=== PATIENT | female | born 1995 | race Caucasian/White ===

== ENCOUNTER 2021-06-20 22:18 | Outpatient (CLI) ==
--- NOTE | 2021-06-20 23:40 | IPNPDOC ---
Text Note Date of Service The patient was seen on 06/20/21. NOTE Chief Complaint: Ms. Echevarria is a 26 year old G4 P 1 at 40+1 weeks gestation presenting to L&D triage for complaints of leaking fluid. HPI: Reports leaking fluid just prior to urination and just after urination at 2100 this evening. Report leaking fluid since and having to wear pad. Clear fluid, no odor. Denies any recent intercourse. Some dark brown spotting starting with contractions at 2000 this evening. Had membranes swept in clinic this past week. Reports contractions every 5 min. Denies vaginal bleeding. Reporting good movement. Denies any headaches, nausea, vomiting, RUQ pain. Denies any dysuria, vaginal discharge, vaginal itching/burning. Objective: VS: BP 139/80, P 91 General: Alert. Well-appearing, in no acute distress. Not breathing through contractions at all. PSYCH: Well groomed. Appropriate affect, normal mood. Conversed easily. Neuro: Oriented to time, place, and person. RESP: Unlabored breathing. CV: No cyanosis. ABD: Soft, non-tender. MSK: Legs without edema bilaterally. Normal mvmt all extremities. Steady gait. Antonietta from a seated position without assistance. Obstetrical: FHR: 135 with moderate variability, accelerations present. No decelerations noted. Contractions Q3-4min, mild to palpation. VTX by Yuko SVE: 50/-3, Mid/medium Pelvic exam: External Genitalia showed no abnormalities, without lesions; normal vulva with NO vulvar atrophy, hypertrophy, stricture, adhesions, ulcers, lesions, masses, or vulvitis. Vagina: Normal vaginal discharge was observed. Normal mucosa with good rugae. No ulcerations, masses, lesions or lacerations. No unusual odors. No cystocele or rectocele. No uterine prolapse. Cervix: Normal mucoid discharge, no lesions, no CMT. Non-friable, no masses. Cervical os visually closed. Negative pooling, negative valsalva. Uterus: Not tender. Appropriate size for gestational age. Online Producer present for exam: L&D RN Limited Trans-Abdominal Ultrasound Performed Today: Presentation: VTX Placenta location: Anterior Movement Present Heart Rate Present Amniotic fluid: MVP 5.13 cm. Labs: Fern negative, nitrazine negative. A/P 26yo at 40+1 wks gestation evaluated in L&D triage for complaints of leaking fluid. VSS and normal Benign physical exam Reactive NST, reassuring TAUS showing: VTX with normal fluid by MVP SVE: 1-250/-3, not in active labor. Negative nitrazine & fern, Not ruptured. Plan: Discussed early labor precautions. Educated on routine OB return precautions and warning signs. Follow up on [facility] as previously scheduled. BRANDEN TUTTLE CNM Jun 20, 2021 23:40
== END 2021-06-20 23:30 | disposition home or self-care (01) ==
LOC: M LDO 22:18
PROVIDERS: ATTEND Advanced Practice Midwife
DX: O26.893 Other specified pregnancy related conditions, third trimester (principal); N89.9 Noninflammatory disorder of vagina, unspecified; Z3A.40 40 weeks gestation of pregnancy
CPT/HCPCS: 59025; G0378; G0463

== ENCOUNTER 2021-06-25 09:12 | Inpatient (IN) | payer OTHER ==
[~2021-06-25] VITALS: Ht 157.5 cm; Wt 79.6 kg
[2021-06-25] VITALS (17 sets, daily range): BP systolic 112–177; BP diastolic 59–97
[2021-06-25] MEDS ORDERED: PRENTAB9 PO (09:31)
[2021-06-25] MEDS ORDERED: IRON1TAB2 PO (09:31)
[2021-06-25] MEDS ORDERED: LACTATED RINGER'S 1000 ML IV STA (10:06)
[2021-06-25] MEDS ORDERED: OXYTOCIN INJ 10 UNITS/ML VIAL (J2590) IV PRN (10:10)
[2021-06-25] MEDS ORDERED: TRANEXAMIC ACID INJection 1,000 MG in NS 100 ML IV PRN (10:10)
[2021-06-25] MEDS ORDERED: CARBOPROST TROMETHAMINE 250 MCG/ML AMP IM PRN (10:10)
[2021-06-25] MEDS ORDERED: OXYTOCIN DRIP 30 UNITS in IV 1 EA IV SCH (10:10)
[2021-06-25] MEDS ORDERED: LIDOCAINE 1% MDV 20ML VIAL INFIL PRN (10:10)
[2021-06-25] MEDS ORDERED: OXYTOCIN DRIP 30 UNITS in IV 1 EA IV PRN ×6 (10:10)
[2021-06-25] MEDS ORDERED: OXYTOCIN INJ 10 UNITS/ML VIAL (J2590) IM PRN (10:10)
[2021-06-25 10:41] LABS: HEMATOCRIT 38.3 % (36.0-47.0); MEAN CORPUSCULAR HEMOGLOBIN 27.9 pg (27.0-33.0); MEAN CORPUSCULAR HGB CONC 31.3 g/dl (32.0-36.5); MEAN CORPUSCULAR VOLUME 89.1 fl (80.0-96.0); PLATELET COUNT, AUTOMATED 258 10^3/uL (150-450); WHITE BLOOD COUNT 10.7 10^3/uL (4.0-10.0)
--- NOTE | 2021-06-25 10:41 | HPEPDOC ---
Obstetrical History & Physical General Date of Admission Jun 25, 2021 at 09:58 History of Present Illness The patient is a 26 yo @ 40W6D by LMP C/W 20 WK US who is admitted for IOL with elevated BP and contractions. She denies any vaginal bleeding, abnormal vaginal discharge, leakage of fluids, urinary symptoms,. She denies any new headaches, visual abnormalities, chest pain, worsening dyspnea, facial swelling, or upper extremity swelling. At this time, she continues to report regular movement. Chief Complaint: Contractions, term Care Care: Good Care Dating Final EDC by: LMP LMP: Sep 12, 2019 Estimated Date of Confinement: Jun 19, 2021 EGA at Admission: 40 (40+6) Antepartum Course Diagnos(e)s 1. LATE ENTRY TO CARE 2. ELEVATED BP on admission- pre e labs pending Past Medical History Past Obstetrical History : Past Obstetrical History: Multigravida Sex of : Male Complications: No SHANK SCOURER History: No pertinent history Past Medical History Surgical History: Denies/None, Gallbladder Family History Significant Family History: No pertinent family hx Social History Marital Status: Family situation: Spouse/partner home Psychosocial History: No pertinent psych hx * Smoker: non-smoker Alcohol: Denies Drugs: denies Abuse Violence Screening Have you been hit/kicked/slapp: No Have you been sexually assault: No Imunizations Tdap status: declined Influenza Status: declined Allergies Coded Allergies: No Known Allergies (Unverified , 06/25/21) Medications Scheduled Ferrous Sulfate (Iron) 325 Mg Tablet, 1 TAB PO BID No.137/Iron/Folic Acd ( Vitamin Tablet) 1 Each Tablet, 1 TAB PO DAILY Physical Examination Physical Examination GENERAL: Alert and oriented times three. BREAST: . ABDOMEN: Gravid and non-tender to touch. FETUS: Is vertex (VTX) by sterile vaginal examination (SVE), HEART RATE: Regular rate and rhythm. LUNGS:NORMAL WORK OF BREATHING EXTREMITIES: No edema. Vital Signs/I&O Vital Signs Date Time Temp Pulse Resp B/P (MAP) Pulse Ox O2 Delivery O2 Flow Rate FiO2 06/25/21 09:27 98.8 109 14 136/91 (106) Laboratory Data [facility] Laboratory Tests 2 06/25/21 10:19: Serology Scanned Report Hepatitis B Testing Urine Culture: No Growth Pertinent Laboratoy Data Blood Type: A+ RBC Antibody Screen: Negative HIV: Negative Hepatitis B: Negative Hepatitis C: Unknown Rapid Plasma Reagin: Nonreactive Rubella: Immune Varicella: Unknown Chlamydia/Gonorrhea: Negative Group B Streptococcus: Negative Glucose Tolerance Test: 116 Anatomy Ultrasound Placenta Location: Anterior Normal Anatomy: Yes Placenta Previa: No Steroid Therapy Steroid Therapy: No Vaginal Examination Dilation: 3 cm Effacement: 70% Station: -2 Cervical Consistency: Soft Cervical Position: Middle Presentation: Cephalic presentation Assessment Heart Rate (FHR): 140 Variability: Moderate Accelerations: Positive Decelerations: None Tocometer Contractions: Yes Frequency: every 3-7 min. Strength: palpated as moderate Multi-drug resistant Organism: No history of MDRO Assessment/Plan Assessment Assessment: The patient is a 26 yo @ 40W6D by LMP C/W 20 WK US who is admitted for IOL with elevated BP and contractions. Pelvis proven to 7lbs 14 oz. Pelvis Adequate for trial of labor. Category I FHRT. APC: 1. Late Entry to care 2. ELEVATED BP on admission- pre e labs pending SVE: /-2 GBS NEG Cephalic by EXAM EFW 3200 RH POS Placenta Anterior, no previa Plan Plan: - Admit to L&D. - Consent obtained - CBC with type and screen and pre e labs - EFM - Anesthesia to see- wants epidural MARY - Risks of augmentation with Pitocin discussed with patient. C-S as appropriate. Labor and Delivery Counseling We will deliver your baby through the vagina with possible assistance of forceps or vacuum device if needed for maternal or indications. Forceps and vacuum are devices that can assist with vaginal delivery when normal pushing efforts cannot achieve delivery on their own or when delivery is needed in an emergency for baby's well-being. Medications may be required to induce or augment (help) your labor in order to achieve a vaginal delivery. An episiotomy may be required to help your baby to delivery vaginally. You may also require repair of any lacerations or tears of your vagina or vulva that are caused by delivery. In some cases, emergencies can occur that require an emergency section delivery so quickly that there may not be enough time to stop and complete consent forms for section. Understand that if this occurs, your providers will discuss the need for a section with you before they proceed with surgery. section is the delivery of your baby through an incision in your abdomen. In some situations, section may be safer to mom and baby than continuing labor and is only performed when clinically indicated. Risks of vaginal delivery include but are not limited to: Bleeding, infection, injury to the vagina, pelvic structures, injury to baby, damage to the uterus, reactions to anesthesia, uterine rupture, risk of hysterectomy for life threatening bleeding, or . Medications used to induce or augment labor may increase your risk for infection, uterine tachysystole, uterine rupture, heart rate abnormalities, need for emergency delivery or possible hysterectomy, and hemorrhage. Additional risks for use of forceps and vacuum include: increased risk of perineal and vaginal lacerations, risk of urinary or bowel incontinence, increased risk of injury to baby with bru ising, scratches, hematomas on the head, or intracranial bleeding. CELIA WOLFE MD Jun 25, 2021 10:41
[2021-06-25 11:07] LABS: ALT/SGPT 17 U/L (12-78); BILIRUBIN,TOTAL 0.3 MG/DL (0.2-1.0); CREATININE FOR GFR 0.54 MG/DL (0.55-1.30); GLOMERULAR FILTRATION RATE > 60.0 (>60); LDH LACTATE DEHYDROGENASE 169 U/L (84-246)
[2021-06-25] MEDS: LR 1,000 ML IV SCH ×2 (11:07→14:42)
[2021-06-25] MEDS ORDERED: FENTANYL 2MCG/ML ROPIVACAINE 0.2% IN 0.9% NACL 100ML IVBAG As Ordered ONE (11:49)
[2021-06-25] MEDS ORDERED: LACTATED RINGER'S 1000 ML IV PRN (12:55)
[2021-06-25] MEDS ORDERED: REFRIGERATOR IV KEYS XX PRN (12:55)
[2021-06-25] MEDS ORDERED: EPIDURAL COMMENT XX SCH (12:55)
[2021-06-25] MEDS ORDERED: ONDANSETRON 4MG/2ML VIAL IV PRN (12:55)
[2021-06-25] MEDS ORDERED: NALOXONE INJ 0.4MG/1ML VIAL (J2310 PER 1MG) IV PRN (12:55)
[2021-06-25] MEDS ORDERED: ePHEDrine SULFATE 25 MG/5 ML(5MG/ML) SYRINGE IV PRN (12:55)
[2021-06-25] MEDS ORDERED: FENTANYL/ROPIVACAINE/NACL BAG 100 ML EPIDURAL SCH (12:55)
[2021-06-25] MEDS ORDERED: EPIDURAL/PCA KEYS XX PRN (12:55)
[2021-06-25] MEDS ORDERED: diphenhydrAMINE 50MG/ML VIAL (J1200) IV PRN (12:55)
[2021-06-25 14:17] LABS: TOTAL PROTEIN,RANDOM URINE 43.7 MG/DL (0.0-12.0)
[2021-06-25] MEDS ORDERED: ANUSOL HC CREAM 30GM TOP PRN (15:50)
[2021-06-25] MEDS ORDERED: DIBUCAINE 1% OINTMENT 30GM TOP PRN (15:50)
[2021-06-25] MEDS ORDERED: DOCUSATE SODIUM 100MG CAPSULE PO PRN (15:50)
[2021-06-25] MEDS ORDERED: ACETAMINOPHEN TAB 650MG DOSE (2X325MG) PO PRN (15:50)
[2021-06-25] MEDS ORDERED: MOM 30ML SUSPENSION UDC PO PRN (15:50)
[2021-06-25] MEDS ORDERED: IBUPROFEN 800 MG TAB PO PRN (15:50)
[2021-06-25 15:58] LABS: CORD GAS ABE A -6.7; CORD GAS HCO3 A 22.4 MEQ/L; CORD GAS O2 SAT A 38.2 %; CORD GAS PCO2 A 59.4 mmHg; CORD GAS PH A 7.194 UNITS; CORD GAS PO2 A 20.7 mmHg; CORD GAS SBC A 17.7 MEQ/L; CORD GAS TCO2 A 24.2 MEQ/L
[2021-06-25 15:59] LABS: CORD GAS ABE V -5.2; CORD GAS HCO3 V 21.3 MEQ/L; CORD GAS O2 SAT V 63.2 %; CORD GAS PCO2 V 44.7 mmHg; CORD GAS PH V 7.296 UNITS; CORD GAS PO2 V 27.5 mmHg; CORD GAS SBC V 19.4 MEQ/L; CORD GAS TCO2 V 22.7 MEQ/L
--- NOTE | 2021-06-25 16:07 | DNPDOC ---
[facility] Delivery Note Delivery Note DATE OF DELIVERY: 06/25/2021 PREDELIVERY DIAGNOSIS: 40-6/7 weeks' gestation and laborr, Elevated BP without he dx og gestational HTN POST DELIVERY DIAGNOSIS: Delivered, Gestational HTN PROCEDURE: Vacuum assisted vaginal delivery CLEAT BLANKER: Letty Still ANESTHESIA: epidural ESTIMATED BLOOD LOSS: 100 mL. FINDINGS: 7pound 3 ounce, 3270g female , Score 9/9, leg cord times x1. DELIVERY SUMMARY: Patient is a 26 -year-old 4 now para 2021 who was admitted to labor and delivery for LABOR WITH SIGNLE ELEVATE BP. Patient achieved cervical dilation of C/C/+4 with Right occiput Anterior. due to prolonged decels to the 70's for 6min, patient patient was counseled on risk/benefits/indications/alternative to operative delivery with Vacuum, for cat III tracing patient agreed to proceed with vacuum assisted vaginal delivery. The bladder was emptied. epidural anesthesia was found to be adequate. EFW was 3200g. Pediatricians were in attendance. The vacuum was applied to the center of the sagittal suture and noted to be in proper position with no maternal soft tissue. with the next contraction, vacuum pressure increased to Green and downward traction applied along axis of pelvis with contractions with descent occurring with the one pull with each contraction and complete delivery of the after 2 contractions and 2 pop offs. had spontaneous cry and movement . Cord was doubly clamped and cut and handed to pediatricians. Cord blood gasses were obtained. The fetus had no visible swelling to suture line after delivery and no scalp laceration. examination of the parenium reveiled a vaginal mucosa abraision that was hemostatis. placenta deliered spontaneously without issues. The fundus was firm with 30 u of pitocin. EBL 100ml. baby was taken to NICU for observation. Mom stayed in L&D in hemodynamic stable condition upon my departure. Sponge, lap and needle count correct x 2 CELIA WOLFE MD Jun 25, 2021 15:59
[2021-06-25] MEDS: ACETAMINOPHEN 500 MG TAB PO PRN (21:25)
[2021-06-26 05:46] VITALS: BP 112/65
--- NOTE | 2021-06-26 05:51 | OBDS ---
[facility] Obstetrical Discharge Sum. Obstetrical Discharge Summary Date: Jun 26, 2021 VDRL: ABO Blood Group Rh: Positive Rubella: Immune Sex: Male A/P, Post Course List any complications Admission diagnosis: .: 40-6/7 weeks' gestation and laborr, Elevated BP without he dx og gestational HTN Discharge diagnosis: : Delivered, Gestational HTN PROCEDURE: Vacuum assisted vaginal delivery MANAGER OF COMMUNITY RELATIONS: Letty Still ANESTHESIA: epidural ESTIMATED BLOOD LOSS: 100 mL. FINDINGS: 7pound 3 ounce, 3270g female , Score 9/9, leg cord times x1. DELIVERY SUMMARY: Patient is a 26 -year-old 4 now para 2021 who was admitted to labor and delivery for LABOR WITH SIGNLE ELEVATE BP and had an unco mplicated vacuum assisted delivery for terminal bradycardia. Condition at Discharge: stable Discharge Instructions: Home Activity: pelvic rest for 6 weeks Diet: regular Medications: at [place] Follow-up: 6 weeks pp Other: hospital course; She was transferred to unit in stable condition. Patient had an uncomplicated hospital course. On day of discharge she is meeting all discharge criteria/milestones to include tolerating PO, ambulating without assistance, urinating without difficulty, and her pain is well controlled. At time of discharge, patient was afebrile and vital signs were within normal limits. She is instructed to call to schedule routine follow-up within 6-7 weeks. All aftercare instructions have been discussed with pt and she is in full understanding all off her instructions. She was discharged to home is stable condition CELIA WOLFE MD Jun 26, 2021 05:51
[2021-06-26] MEDS ORDERED: PRENATAL VITAMINS CHEWABLE TABLET PO SCH (09:00)
[2021-06-26] MEDS: ACETAMINOPHEN 500 MG TAB PO PRN (11:15)
== END 2021-06-26 17:15 | disposition home or self-care (01) | DRG 807 ==
LOC: M LDO 09:12 → M LDI 09:58 → M OBS 17:50
PROVIDERS: ADMIT Obstetrics & Gynecology; ATTEND Obstetrics & Gynecology
PROC: 10D07Z6 Extraction of Products of Conception, Vacuum, Via Natural or Artificial Opening (ICD-10-PCS; principal; 2021-06-25)
DX: O13.4 Gestational [pregnancy-induced] hypertension without significant proteinuria, complicating childbirth (principal); Z37.0 Single live birth; Z3A.40 40 weeks gestation of pregnancy; O48.0 Post-term pregnancy; O76 Abnormality in fetal heart rate and rhythm complicating labor and delivery